=== PATIENT | female | born 1985 | race Caucasian/White ===

== ENCOUNTER 2018-03-19 13:13 | Emergency (ER) | payer OTHER ==
[~2018-03-19] VITALS: Ht 160 cm; Wt 77.1 kg
[2018-03-19] MEDS ORDERED: Acetaminophen 500mg (ES) tab ORAL ONE (14:00)
--- NOTE | 2018-03-19 14:51 | Emergency Room Report ---
History of Present Illness General Chief Complaint: Lower Extremity Injury Source: Patient Present Illness HPI 32-year-old female patient presents ER complaining of right big toe pain and bleeding status post injury a few hours ago. Patient reports that she was at work when a table fell onto her big toe. Reports she has not put any weight on her toe since that time but has been able to drive and ambulate without difficulty. Denies other acute symptoms. denies hitting her head loss consciousness. Denies other acute symptoms. Allergies: Coded Allergies: No Known Allergies (Unverified , 03/19/18) Patient History Past Medical History: see triage record Last Menstrual Period: 7-3 Now: No Reviewed Nursing Documentation: PMH: Agreed; PSxH: Agreed Nursing Documentation-PMH Past Medical History: No Stated History Review of Systems All Other Systems: negative except mentioned in HPI Physical Exam Vital Signs Date Time Temp Pulse Resp B/P (MAP) Pulse Ox O2 Delivery O2 Flow Rate FiO2 03/19/18 13:21 98.0 85 18 116/74 98 Room Air 98.1 Sp02 EP Interpretation: reviewed, normal General Appearance: well appearing, no apparent distress, alert, GCS 15, non- toxic Head: normocephalic, atraumatic Eyes: bilateral eye normal inspection, bilateral eye PERRL ENT: hearing grossly normal, normal pharynx, no angioedema, normal voice, uvula midline, moist mucus membranes Neck: full range of motion Respiratory: lungs clear, normal breath sounds, no rhonchi, no respiratory distress, no accessory muscle use, no wheezing, speaking full sentences Cardiovascular #1: regular rate, rhythm, no edema Cardiovascular #2: 2+ dorsalis pedis (R), 2+ dorsalis pedis (L) Musculoskeletal: back normal, digits/nails normal, gait/station normal, normal range of motion, tender - right big toe Neurologic: alert, oriented x3, responsive, motor strength/tone normal, sensory intact Skin: other - no subungual hematoma, no damage to nail bed or nail, abrasions - 2-3mm small abrasion proximal to right big toenail, cuticle intact, blood present, no active bleeding Medical Decision Making PA Attestation Dr. Villareal is my supervising Physician whom patient management has been discussed with. Diagnostic Impression: Primary Impression: Fracture of toe of right foot ER Course Pt. presents to the ED c/o right big toe pain. Ddx considered but are not limited to fracture, sprain, strain, contusion, dislocation. No erythema, no warmth to touch, no fever, nontoxic appearing, low suspicion for septic joint. Vital signs: are WNL, pt. is afebrile Ordered X-ray and pain medication. ER COURSE Patient declined pain medication. toenail czech removed with acetone in the ER to visualize nail underneath. An X-ray of the right foot shows small fracture of distal phalanx, nondisplaced , no avulsion, per the preliminary reading. Contact ER tomorrow for official radiology report follow-up with Workmen's Compensation physician. patient's right foot placed into postop shoe, big toes catrina taped in the ER, was checked afterwards by me showing good alignment and support with distal neurovascular functioning intact. Small cut on toe proximal to nail, cuticle intact, does not require suture or wound closure at this time. Wound cleaned in ER, bacitracin applied to wound, wound dressed with sterile gauze. No subungual hematoma requiring trephination at this time. Patient reports able ambulate independently, declined crutches. Patient instructed on RICE method: rest, ice, compression, elevation. Patient instructed on rest, ice and heat. Patient instructed to be WBAT Workmen's Compensation paperwork completed. Followup with primary care provider. Discuss referral to ortho/pain management/ PT/podiatry as needed. Discuss further imaging with MRI/CT as needed. DISCHARGE: -Rx provided for Tylenol for pain symptoms. -Rx provided for Bacitracin At this time pt. is stable for d/c to home. Patient is resting comfortably, in no acute distress, nontoxic appearing, talking without difficulty. Will provide printed patient care instructions, and any necessary prescriptions. Patient instructed to follow with primary care provider in 3 - 5 days and to request further follow-up as needed. Care plan and follow up instructions have been discussed with the patient prior to discharge. Take medications as directed. Patient questions asked and answered. Patient reports understanding and agreement to treatment plan. ER precautions given, patient instructed to return to ER immediately for any new or worsening of symptoms. - Please note that this Emergency Department Report was dictated using [employer] technology software, occasionally this can lead to erroneous entry secondary to interpretation by the dictation equipment. Other X-Ray Diagnostic Results Other X-Ray Diagnostic Results : X-Ray ordered: right foot # of Views/Limited Vs Complete: 3 View Indication: Pain EP Interpretation: Yes PA Xray: Interpretation reviewed, by supervising MD, and agrees with findings. Interpretation: no dislocation, no soft tissue swelling, other - small fracture of distal phalanx of right toe Impression: Other - distal phalanx fracture PA Scribe Text Jan Worthington PA-C Last Vital Signs Date Time Temp Pulse Resp B/P (MAP) Pulse Ox O2 Delivery O2 Flow Rate FiO2 03/19/18 13:21 98.0 85 18 116/74 98 Room Air 98.1 Disposition: HOME, SELF-CARE Condition: Stable Scripts Bacitracin/Polymyxin B Sulfate (BACITRACIN-POLYMYXIN OINTMENT) 28.35 Gm Oint...g. 1 APPLIC TP BID for 7 Days, #28 GM Prov: Hernandez Worthington 03/19/18 Acetaminophen* (TYLENOL EXTRA STRENGTH*) 500 Mg Tablet 500 MG ORAL Q8H PRN for Prn Headache/Temp > 101, #30 TAB 0 Refills Prov: Hernandez Worthington 03/19/18 Referrals: NOT CHOSEN IPA/,REFERRING (PCP) Patient Instructions: Toe Fracture, Picc-mo-Frum Additional Instructions: Patient instructed to follow up with primary care provider and discuss further referral to orthopedics and repeat imaging as needed. Patient instructed on RICE method: rest, ice, compression, elevation. Patient instructed to WBAT. Take medications as directed. Patient questions asked and answered. ER precautions given, patient instructed to return to ER immediately for any new or worsening of symptoms. Hernandez Worthington Mar 19, 2018 14:51
[2018-03-19] MEDS ORDERED: Bacitracin Oint UD TOPIC ONE ×2 (15:28→15:30)
[2018-03-19] MEDS ORDERED: TYLENOL EXTRA500 MG ORAL (15:30)
[2018-03-19] MEDS ORDERED: BACITRACIN-P28.35 GM TP (15:34)
[2018-03-19 15:45] VITALS: BP 121/65
--- NOTE | 2018-03-20 13:44 | Diagnostic Imaging Report ---
Indication: Pain Technique: XRAY Foot Complete R Comparison: None Findings: No acute fracture or dislocation. Joint spaces and alignment preserved. There is a small os trigonum. No appreciable ankle joint effusion. No radiopaque foreign body. Impression: No acute fracture or dislocation.
== END 2018-03-19 15:47 | disposition home or self-care (01) ==
LOC: EMR 14:22
DX: S92.901A Unspecified fracture of right foot, initial encounter for closed fracture (principal); W20.8XXA Other cause of strike by thrown, projected or falling object, initial encounter; Y92.512 Supermarket, store or market as the place of occurrence of the external cause; Y99.0 Civilian activity done for income or pay
CPT/HCPCS: 99283